=== PATIENT | male | born 1995 | race Caucasian/White ===

== ENCOUNTER 2020-11-15 23:31 | Emergency (ER) | payer BC, OTHER, SELFPAY ==
--- NOTE | ~2020-11-15 | XR_ITS ---
EXAMINATION: XR chest 2V DATE: 11/15/2020 23:57 INDICATION: Reduction of cough TECHNIQUE: PA and lateral views of the chest are obtained. COMPARISON: None available FINDINGS: The lungs are free of acute opacities. There is no pleural effusion or pneumothorax. The ca rdiomediastinal silhouette is normal. The visualized bones and soft tissues are unremarkable. IMPRESSION: 1. No acute cardiopulmonary abnormality. Reviewed, dictated and finalized at location A.
[2020-11-15 23:40] VITALS: BP 139/85; PULSE 110; RESP 18; TEMP 36.9; O2SAT 98
[2020-11-16] MEDS: ALBUTEROL SULFATE NEB 2.5 MG/0.5 ML INH 5 MG INHALATION
[2020-11-16] MEDS: IPRATROPIUM BR 0.02% INH SOLN 0.5 MG/2.5 ML VIAL INHALATION
[2020-11-16 00:01] VITALS: PULSE 76; RESP 16
--- NOTE | 2020-11-16 00:09 | ED.SOB ---
HPI - SOB/Dyspnea General Chief Complaint: Shortness of Breath/Dyspnea Stated Complaint: SOB, productive cough Time Seen by Provider: 11/15/20 23:43 Source: patient Mode of arrival: ambulatory Limitations: no limitations History of Present Illness HPI Narrative: 25-year-old male History of asthma Complains of a cough and some shortness of breath for 5 or 6 days Productive of scanty amounts of phlegm which has been blood-tinged a couple of times No fever [place] through the [employer] Covid sequence with his first shot was a month ago Used his albuterol with incomplete relief Review of Systems Constitutional: Constitutional: Denies chills, Denies fever(s) and Reports weakness Respiratory: Respiratory: Reports cough, Reports dyspnea and Reports wheezing Gastrointestinal: Gastrointestinal: Denies nausea and Denies vomiting Exam Const: General: cooperative and alert Orientation/consciousness: patient oriented x3 (alert) HENMT: Head: normal to inspection, normocephalic and atraumatic Ears: external ears normal General nose exam: no epistaxis Eyes: Conjunctivae: conjunctivae normal EOM: EOMs intact bilaterally Neck: Neck: normal visual inspection, supple and no JVD Resp: Effort & Inspection: normal respiratory effort and not labored Auscultation: wheezes and other (BS =) Cardio: Rate: regular rate Rhythm: regular rhythm Heart sounds: no murmurs GI: GI Palp: Yes Soft to palpation and No Tenderness to palpation present (GI) Skin: General skin exam: normal color and no rashes or lesions noted Neuro: General: patient oriented x3 (alert) and moves all extremities Speech: normal speech Extrem: General: normal to inspection and no pedal edema Psych: Affect: normal affect Course Vital Signs Vital signs: Vital Signs Pulse Rate 76 11/16/20 00:01 Respiratory Rate 16 11/16/20 00:01 Pulse Rate 76 11/16/20 00:01 Respiratory Rate 16 11/16/20 00:01 MDM - SOB/Dyspnea Lab Data Result diagrams: 11/16/20 00:02 Labs: Lab Results 11/16/20 Range/Units 00:02 WBC Pending RBC Pending Hgb Pending Hct Pending MCV Pending MCH Pending MCHC Pending RDW Pending Plt Count Pending MPV Pending Immature Gran % (Auto) Pending Neut % (Auto) Pending Lymph % (Auto) Pending [place] % (Auto) Pending Eos % (Auto) Pending Baso % (Auto) Pending Lymph # (Auto) Pending [place] # (Auto) Pending Eos # (Auto) Pending Baso # (Auto) Pending Abs Immat Gran (auto) Pending Absolute Neuts (auto) Pending Absolute Nucleated RBC Pending Nucleated RBC % Pending Imaging Data My impression: CXR = NAD Discharge Plan Discharge Clinical Impression: Bronchitis, Asthma Patient Disposition: Home, Self-Care Condition: Stable Instructions: Antibiotic Form, Asthma (ED), Acute Bronchitis (ED) Additional Instructions: Covid testing result will be available sometime late Tuesday afternoon Be sure you complete your vaccination sequence Prescriptions: New azithromycin 250 mg tablet See Rx Instructions .ROUTE .COMPLEX Qty: 6 RF: 0 prednisone 10 mg tablet 10 mg PO BID Qty: 6 RF: 0 Follow-up/Referrals: PHYSICIAN NOT ON STAFF,NONSTAFF [Primary Care Provider] - Macey Archuleta DO [Physician] - (Or your current primary care doctor, next week)
[2020-11-16 00:10] VITALS: PULSE 71; RESP 16
[2020-11-16 00:11] LABS: Basophils Absolute Auto 0.1 K/mm3 (0.0-0.1); Basophils Percent Auto 0.5 % (0.2-1.2); Eosinophils Absolute Auto 0.2 K/mm3 (0-0.3); Eosinophils Percent Auto 1.4 % (0-4.4); Hematocrit 43.8 % (42.0-52.0); Hemoglobin 14.7 g/dL (14.0-18.0); Immature Granulocyte Absolute 0.05 K/mm3 (0.00-0.031); Immature Granulocyte Percent A 0.4 % (0-0.5); Lymphocytes Percent Auto 13.8 % (18.3-44.2); Mean Corpuscular HGB Conc 33.6 g/dl (32-36); Mean Corpuscular Hemoglobin 31.6 pg (26-34); Mean Corpuscular Volume 94.2 fl (80-100); Mean Platelet Volume 11.4 fl (7.4-10.4); Monocytes Absolute Auto 1.4 K/mm3 (0.1-0.6); Monocytes Percent Auto 10.2 % (2.6-8.5); Neutrophils Absolute Auto 10.2 K/mm3 (1.3-6.7); Neutrophils Percent Auto 73.7 % (45.5-73.1); Platelet Count Result 187 k/mm3 (150-375); Red Blood Count 4.65 M/mm3 (4.6-6.20); Red Cell Distribution Width 11.7 % (11.5-14.5); White Blood Count 13.8 K/mm3 (4.5-10.0)
[2020-11-16 00:45] VITALS: BP 135/87; PULSE 65; RESP 16; O2SAT 98
== END 2020-11-16 00:45 | disposition home or self-care (01) ==
LOC: ANHED 11-16 00:28
PROVIDERS: Emergency Provider Emergency Medicine
DX: J45.909 Unspecified asthma, uncomplicated (principal); Z20.822 Contact with and (suspected) exposure to COVID-19
CPT/HCPCS: 36415; 71046; 85025; 94640; 99283; C9803; U0003; U0005